=== PATIENT | female | born 1980 | race Two or more races ===

== ENCOUNTER 2022-03-20 12:40 | Day surgery (SDC) | payer OTHER ==
[2022-03-20] MEDS ORDERED: KETO10TA2 PO (17:44)
== END 2022-03-21 00:30 | disposition home or self-care (01) ==
LOC: CIR.AMB 12:40
PROVIDERS: ATTEND Obstetrics & Gynecology
DX: D06.0 Carcinoma in situ of endocervix (principal); Z20.822 Contact with and (suspected) exposure to COVID-19